=== PATIENT | male | born 1960 | race African-American/Black ===

== ENCOUNTER 2019-01-10 18:34 | Emergency (ER) | payer OTHER ==
[2019-01-10] MEDS ORDERED: ACETAMINOPHEN 325 MG TABLET PO ONE (19:03)
[2019-01-10] MEDS ORDERED: IBUPROFEN 600 MG TABLET PO ONE (19:03)
[2019-01-10] MEDS ORDERED: LIDOCAINE 1% INJ-PF (10 MG/ML) 30 ML SDV INJ ONE (19:04)
--- NOTE | 2019-01-10 19:07 | ER Document Report ---
ED Medical Screen (RME) - General Chief Complaint: Laceration Stated Complaint: LACERATED FINGER Time Seen by Provider: 01/10/19 19:00 Primary Care Provider: FLEX NELSON MD [Primary Care Provider] - Follow up as needed Notes: Patient is a 58-year-old male who presents to the emergency department with a laceration to his right proximal index finger. He was cooking and cut himself with a knife. He states he is up-to-date on his immunizations. This happened shortly prior to arrival. Exam: Proximal right index finger laceration. Active arterial bleed noted. I have greeted and performed a rapid initial assessment of this patient. A comprehensive ED assessment and evaluation of the patient, analysis of test results and completion of medical decision making process will be conducted by an additional ED providers. TRAVEL OUTSIDE OF THE [place] IN LAST 30 DAYS: No - Related Data Allergies/Adverse Reactions: No Known Allergies Allergy (Verified 11/28/15 03:13) Past Medical History Past Surgical History: Reports: Hx Cholecystectomy, Hx Orthopedic Surgery - rotator cuff repair - Immunizations Hx Diphtheria, Pertussis, Tetanus Vaccination: Yes Physical Exam - Vital signs Vitals: Temp Pulse Resp BP Pulse Ox 98.1 F 57 L 18 138/93 H 94 01/10/19 18:44 01/10/19 18:44 01/10/19 18:44 01/10/19 18:44 01/10/19 18:44 Course - Vital Signs Vital signs: Temp Pulse Resp BP Pulse Ox 98.1 F 57 L 18 138/93 H 94 01/10/19 18:44 01/10/19 18:44 01/10/19 18:44 01/10/19 18:44 01/10/19 18:44 Doctor's Discharge - Discharge Referrals: FLEX NELSON MD [Primary Care Provider] - Follow up as needed
--- NOTE | 2019-01-10 20:42 | RADIOLOGY REPORT (SQ) ---
EXAM DESCRIPTION: XR FINGERS COMPLETED DATE/TME: 01/10/2019 19:03 CLINICAL HISTORY: 58 years, Male, laceration COMPARISON: There is a macro alpha 3 NUMBER OF VIEWS: TECHNIQUE: LIMITATIONS: None. FINDINGS: EXAM DESCRIPTION: CLINICAL HISTORY: laceration COMPARISON: None FINDINGS: 3 view(s) submitted. There is a small bulge in fracture of the base of the right second distal phalanx. There is also laceration of the digit. Small density, possibly bone fragment is seen at the second MCP joint as well. This may also reflect an avulsion injury, versus foreign body. In the lateral view there is a possible defect in the distal aspect of the middle phalanx. No other acute abnormality. IMPRESSION: Possible retained foreign body or free fragment versus avulsion fracture at the second MCP. Distal phalanx fracture and soft tissue laceration.
--- NOTE | 2019-01-10 21:10 | ER Document Report ---
ED Wound - General Chief Complaint: Laceration Stated Complaint: LACERATED FINGER Time Seen by Provider: 01/10/19 19:00 Primary Care Provider: FLEX NELSON MD [Primary Care Provider] - Follow up as needed Notes: 58-year-old male who presents to the emergency department with a laceration to his right proximal index finger. He was cooking and cut himself with a knife. He states he is up-to-date on his immunizations. This happened shortly prior to arrival. Bleeding is not actively controlled and he is applying pressure to the wound with 4 x 4's. TRAVEL OUTSIDE OF THE [place] IN LAST 30 DAYS: No - Related Data Allergies/Adverse Reactions: No Known Allergies Allergy (Verified 11/28/15 03:13) Past Medical History - Social History Smoking Status: Never Smoker Chew tobacco use (# tins/day): No Family History: Reviewed & Not Pertinent Patient has suicidal ideation: No Patient has homicidal ideation: No Renal/ Medical History: Denies: Hx Peritoneal Dialysis Past Surgical History: Reports: Hx Cholecystectomy, Hx Orthopedic Surgery - rotator cuff repair - Immunizations Hx Diphtheria, Pertussis, Tetanus Vaccination: Yes Review of Systems - Review of Systems Constitutional: No symptoms reported EENT: No symptoms reported Cardiovascular: No symptoms reported Respiratory: No symptoms reported Gastrointestinal: No symptoms reported Genitourinary: No symptoms reported Male Genitourinary: No symptoms reported Musculoskeletal: No symptoms reported Skin: See HPI Hematologic/Lymphatic: No symptoms reported Neurological/Psychological: No symptoms reported Physical Exam - Vital signs Vitals: Temp Pulse Resp BP Pulse Ox 98.1 F 57 L 18 138/93 H 94 01/10/19 18:44 01/10/19 18:44 01/10/19 18:44 01/10/19 18:44 01/10/19 18:44 - Notes Notes: PHYSICAL EXAMINATION: Reviewed vital signs and charting by RN GENERAL: Alert, interacts well. No acute distress. HEAD: Normocephalic, atraumatic. EYES: Pupils equal and round. Extraocular movements intact. ENT: Oral mucosa moist, tongue midline. NECK: Full range of motion. Trachea midline. EXTREMITIES: Moves all 4 extremities spontaneously. No edema, No cyanosis. Large laceration on the palmar aspect of the right index finger approximately 4 cm non-circumferential, active range of motion intact and patient has strength to extensor and flexor tendons PSYCH: Normal affect, normal mood. SKIN: Warm, dry, normal turgor. No rashes or lesions noted. Course - Re-evaluation Re-evalutation: 01/10/19 21:05 Overall well-appearing and I performed a primary closure, initially putting in 3 sutures to achieve hemorrhage control, then I was able to evaluate the wound after performing a digital block of the right index finger. Patient ultimately received 13 sutures of 5-0 Ethilon and tolerated the procedure well. 01/10/19 21:10 Patient wound was dressed and placed in a finger splint. Strict return precautions given stable for discharge. - Vital Signs Vital signs: Temp Pulse Resp BP Pulse Ox 98.1 F 57 L 18 138/93 H 94 01/10/19 18:44 01/10/19 18:44 01/10/19 18:44 01/10/19 18:44 01/10/19 18:44 Procedures - Laceration/Wound Repair Right Proximal Finger 2nd digit Wound length (cm): 4 Wound's Depth, Shape: Superficial Laceration pre-procedure: Sterile PPE donned Anesthetic type: 1% Lidocaine Wound explored: Clean Wound Debrided: Minimal Suture Size/Type: 5:0, Ethilon Layer Closure?: No Post-procedure NV exam normal: Yes Complications: No Discharge - Discharge Clinical Impression: Laceration Condition: Good Disposition: HOME, SELF-CARE Instructions: Antibiotic Ointment Protection ([facility]), Laceration Care ([facility]), Prophylactic Antibiotic ([facility]), Soap Cleansing ([facility]) Additional Instructions: Please return to your primary doctor, the ED, or an urgent care in 7 days for suture removal. Return immediately if you develop spreading redness around the wound, pus from the wound, worsening pain, or a fever of >101. Keep the area clean and dry. Wash gently with soap and water twice daily and cover with antibiotic ointment. Referrals: FLEX NELSON MD [Primary Care Provider] - Follow up as needed
[2019-01-10 21:24] VITALS: BP 142/88
[2019-01-10] MEDS ORDERED: DIPH/PERTUSS(ACELL)/TETANUS VAC/PF 0.5 ML SYR (>=10YO) IM ONE (21:24)
[2019-01-10] MEDS ORDERED: HYDROCODONE/ACETAMINOPHEN 5-325 MG (6 TAB/ER DISP) PO PRN (21:30)
== END 2019-01-10 22:00 | disposition home or self-care (01) ==
LOC: ER 18:34
DX: S61.210A Laceration without foreign body of right index finger without damage to nail, initial encounter (principal); W26.0XXA Contact with knife, initial encounter; Y93.G3 Activity, cooking and baking
CPT/HCPCS: 90471; 90715; 99283